=== PATIENT | female | born 1965 | race African-American/Black ===

== ENCOUNTER 2022-04-04 17:30 | Emergency (ER) | payer BC ==
[~2022-04-04] VITALS: Ht 162.6 cm; Wt 72.0 kg
[2022-04-04 18:23] LABS: BASOPHILS # (AUTO) 0.1 X10'3 (0-0.2); BASOPHILS % (AUTO) 0.7 % (0-1); EOSINOPHILS # (AUTO) 0.1 X10'3 (0-0.9); EOSINOPHILS % (AUTO) 0.8 % (0-6); HEMATOCRIT 39.2 % (35.0-45.0); HEMOGLOBIN 12.8 g/dl (12.0-16.0); LYMPHOCYTES # (AUTO) 2.6 X10'3 (1.1-4.8); LYMPHOCYTES % (AUTO) 20.2 % (21-51); MEAN CORPUSCULAR HGB CONC 32.7 g/dL (33.0-36.5); MEAN CORPUSCULAR VOLUME 88.6 FL (78-98); MONOCYTES % (AUTO) 7.5 % (2-12); NEUTROPHILS # (AUTO) 9.1 X10'3 (1.8-7.7); NEUTROPHILS % (AUTO) 70.8 % (42-75); PLATELET COUNT 284 X10'3 (140-440); RED BLOOD COUNT 4.43 X10'6 (4.20-5.60); RED CELL DISTRIBUTION WIDTH 13.4 % (11.5-14.5); WHITE BLOOD COUNT 12.8 X10'3 (4.5-11.0)
[2022-04-04 18:24] LABS: CLARITY,URINE CLEAR (Clear); COLOR,URINE YELLOW (Yellow); GLUCOSE, URINE NEGATIVE (Neg); KETONES,URINE NEGATIVE (Neg); LEUKOCYTE ESTERASE ,URINE NEGATIVE (Neg); NITRITES, URINE NEGATIVE (Neg); OCCULT BLOOD,URINE NEGATIVE (Neg); PH,URINE 8.5 (4.8-8.0); PROTEIN,URINE NEGATIVE (Neg)
[2022-04-04 18:29] LABS: URINE HCG NEGATIVE (NEG)
[2022-04-04 18:30] LABS: UA COLLECTION TYPE CLN CATCH MIDSTREAM
[2022-04-04 18:42] LABS: ALANINE AMINOTRANSFERASE 23 U/L (12-78); ALBUMIN 3.6 G/DL (3.4-5.0); ALBUMIN/GLOBULIN RATIO 0.9 (1.1-1.5); ALKALINE PHOSPHATASE 98 IU/L (46-116); ANION GAP 7 (8-16); ASPARTATE AMINO TRANSFERASE 24 U/L (10-37); BILIRUBIN,TOTAL 0.4 MG/DL (0.1-1.0); BLOOD UREA NITROGEN 16 MG/DL (7-18); BUN/CREATININE RATIO 17.4 (6.6-38.0); CALCIUM 9.2 MG/DL (8.5-10.1); CHLORIDE 105 MMOL/L (99-107); CREATININE 0.92 MG/DL (0.40-0.90); GLUCOSE 99 MG/DL (70-104); LIPASE 86 U/L (73-393); POTASSIUM 3.5 MMOL/L (3.5-5.1); SODIUM 142 MMOL/L (135-145); TOTAL CARBON DIOXIDE 29.8 MMOL/L (24-32); TOTAL PROTEIN 7.6 G/DL (6.4-8.2); eGFR 62 ML/MIN
[2022-04-04] MEDS ORDERED: HYDROcodone/acetaminophen 5mg/325mg tablet PO ONE (22:20)
[2022-04-04] MEDS ORDERED: iohexol 300mg/ml 100ml inj. ONE (22:28)
[2022-04-04] MEDS ORDERED: normal saline 1000ML IV soln IVB ONE (22:30)
--- NOTE | 2022-04-04 23:36 | NUR ---
PAGE US AT 2300 US ARRIVED AT 5005
[2022-04-05] MEDS ORDERED: piperacillin/tazo 3.375gm/50ml 50 ML IV ONE (00:30)
[2022-04-05] MEDS ORDERED: HYDR-3965 PO (00:48)
[2022-04-05] MEDS ORDERED: AMOX-117 PO (00:48)
[2022-04-05 02:19] VITALS: BP 149/96
== END 2022-04-05 02:24 | disposition home or self-care (01) ==
LOC: ER 17:34
DX: K57.92 Diverticulitis of intestine, part unspecified, without perforation or abscess without bleeding (principal); K76.89 Other specified diseases of liver; N28.1 Cyst of kidney, acquired
CPT/HCPCS: 36415; 74177; 80053; 81003; 81025; 83605; 83690; 85025; 87040; 96361; 96365; 99285; J2543; J3490; J7030; J7040; Q9967

== ENCOUNTER 2024-03-04 15:33 | Emergency (ER) | payer BC ==
[~2024-03-04] VITALS: Ht 162.6 cm; Wt 68.2 kg
[2024-03-04] MEDS: ipratropium/albuterol 3ml nebule NEB ONE ×2 (15:44→17:27)
[2024-03-04 15:45] VITALS: PULSE 120; RESP 20; O2SAT 98
[2024-03-04] MEDS: dexamethasone sod phosphate 10mg/ml inj IV ONE (15:47)
[2024-03-04 15:54] VITALS: PULSE 120; RESP 20; O2SAT 98
[2024-03-04] MEDS: magnesium sulf-water 2g/50mL 50 ML IV ONE (16:34)
[2024-03-04] MEDS ORDERED: PRED20TA PO (17:25)
[2024-03-04 17:27] VITALS: PULSE 104; RESP 18; O2SAT 98
[2024-03-04 17:35] VITALS: PULSE 88; RESP 16; O2SAT 99
[2024-03-04 18:08] VITALS: BP 129/80; PULSE 88; RESP 16; TEMP 98.4; O2SAT 99
== END 2024-03-04 18:10 | disposition home or self-care (01) ==
LOC: ER 15:34
DX: J45.901 Unspecified asthma with (acute) exacerbation (principal); Z88.2 Allergy status to sulfonamides
CPT/HCPCS: 71045; 94640; 96365; 96375; 99284; J1100; 94760; A4615

== ENCOUNTER 2024-04-07 22:53 | Emergency (ER) | payer BC ==
[~2024-04-07] VITALS: Ht 162.6 cm; Wt 58.8 kg
[2024-04-07 22:54] VITALS: TEMP 96.8
[2024-04-07 23:17] LABS: BASOPHILS % (AUTO) 0.5 % (0-1); EOSINOPHILS # (AUTO) 0.1 X10'3 (0-0.9); EOSINOPHILS % (AUTO) 0.8 % (0-6); HEMATOCRIT 40.7 % (35.0-45.0); HEMOGLOBIN 13.6 g/dl (12.0-16.0); LYMPHOCYTES % (AUTO) 13.4 % (21-51); MEAN CORPUSCULAR HEMOGLOBIN 29.5 PG (27.0-31.0); MEAN CORPUSCULAR HGB CONC 33.5 g/dL (33.0-36.5); MEAN CORPUSCULAR VOLUME 87.9 FL (78-98); MEAN PLATELET VOLUME 7.1 FL (7.4-10.4); MONOCYTES # (AUTO) 0.6 X10'3 (0-0.9); MONOCYTES % (AUTO) 7.9 % (2-12); NEUTROPHILS % (AUTO) 77.4 % (42-75); PLATELET COUNT 283 X10'3 (140-440); RED BLOOD COUNT 4.62 X10'6 (4.20-5.60); RED CELL DISTRIBUTION WIDTH 14.7 % (11.5-14.5); WHITE BLOOD COUNT 7.7 X10'3 (4.5-11.0)
[2024-04-07 23:30] LABS: ALANINE AMINOTRANSFERASE 22 U/L (12-78); ALBUMIN 4.1 G/DL (3.4-5.0); ALBUMIN/GLOBULIN RATIO 1.1 (1.1-1.5); ALKALINE PHOSPHATASE 96 IU/L (46-116); ANION GAP 8 (8-16); ASPARTATE AMINO TRANSFERASE 28 U/L (10-37); BILIRUBIN,TOTAL 0.3 MG/DL (0.1-1.0); BLOOD UREA NITROGEN 19 MG/DL (7-18); BUN/CREATININE RATIO 16.5 (10.0-20.0); CHLORIDE 104 MMOL/L (99-107); CREATININE 1.15 MG/DL (0.40-0.90); GLUCOSE 106 MG/DL (70-104); LIPASE 48 U/L (16-77); POTASSIUM 3.7 MMOL/L (3.5-5.1); SODIUM 143 MMOL/L (135-145); TOTAL PROTEIN 7.8 G/DL (6.4-8.2); eCRCL 44 ML/MIN; eGFR 58 ML/MIN
[2024-04-08 01:07] LABS: URINE HCG NEGATIVE (NEG)
[2024-04-08 01:13] LABS: BILIRUBIN,URINE NEGATIVE (Neg); CLARITY,URINE CLEAR (Clear); GLUCOSE, URINE NEGATIVE (Neg); KETONES,URINE 15 mg/dl (Neg); LEUKOCYTE ESTERASE ,URINE NEGATIVE (Neg); NITRITES, URINE NEGATIVE (Neg); OCCULT BLOOD,URINE NEGATIVE (Neg); PH,URINE 6.5 (4.8-8.0); PROTEIN,URINE 30 mg/dl (Neg); UROBILINOGEN,URINE 0.2 E.U/dL (0.2-1.0)
[2024-04-08 01:14] LABS: COLOR,URINE DARK YELLOW (Yellow); UA COLLECTION TYPE CLN CATCH MIDSTREAM
[2024-04-08] MEDS ORDERED: ONDA-245 PO (01:22)
[2024-04-08 01:23] LABS: BACTERIA,URINE FEW /HPF (Neg); RBC,URINE NONE SEEN /HPF (0-2); SQUAMOUS EPITHELIAL CELL,UR FEW /LPF (FEW); WBC,URINE 0-4 /HPF (0-4)
[2024-04-08 01:40] VITALS: BP 167/92; PULSE 77; RESP 15; O2SAT 98
== END 2024-04-08 01:47 | disposition home or self-care (01) ==
LOC: ER 22:54
DX: K29.00 Acute gastritis without bleeding (principal); Z88.2 Allergy status to sulfonamides
CPT/HCPCS: 36415; 80053; 81001; 81025; 83690; 85025; 99283